=== PATIENT | male | born 1970 | race Caucasian/White ===

== ENCOUNTER → 2017-09-27 | Day surgery (SDC) | payer OTHER ==
[~2017-09-27] VITALS: Ht 180.3 cm; Wt 109.0 kg
[~2017-09-27] MED LIST: ACETAMINOPHEN 1000 MG/100 ML 100 ML IV ONE; ACETAMINOPHEN/HYDROcodone 325 MG/5 MG TAB PO PRN; CEFT2INJ2 IV; CHLORHEXIDINE GLUCONATE 2 % 1 PACK (2 CLOTHS) TOPICAL PRN; DEXAMETHASONE SOD PHOS 4 MG/ML VIAL IV ONE; DO NOT ADM ANY ANTICOAGULANT DRUGS PRN; HYDROmorphone HCL PF 2 MG/ML VIAL ONE; INSULIN HUMAN REGULAR 1,000 UNITS/10 ML VIAL SQ PRN; LACTATED RINGER'S 1000 ML IV PRN; LANTUS2P SQ; LIDOCAINE HCL 1% PF 5 ML SYRINGE OTHER ONE; LISI-515 PO; METF500T PO; METOPROLOL TARTRATE 25 MG TAB PO PRN; MIDAZOLAM HCL 2 MG/2 ML VIAL ONE; MINO100 PO; ONDANSETRON HCL 4 MG/2 ML VIAL IV ONE; PICC Daily Heparin 100 unit/mL Lock Flush IV FLUSH SCH; PICC PRN After Blood Draw NS Lock Flush IV FLUSH; PICC PRN Heparin 100 units/ml Lock Flush IV FLUSH; POVIDONE IODINE 5% (ANTISEPSIS KIT) 4 APPLICATIONS EACH NARE PRN; PROPOFOL 200 MG/20 ML AMP IV ONE; SODIUM CHLORID 0.9% 500 ML IV PRN; SODIUM CHLORIDE 0.9% FLUSH 10 ML FLUSH IV FLUSH PRN; SODIUM CHLORIDE 0.9% FLUSH 10 ML FLUSH IV FLUSH SCH; ceFAZolin 2 GM PREMIX 50 ML IV SCH
[2017-09-27 13:20] VITALS: BP 142/89; PULSE 96; RESP 16; TEMP 98.3; O2SAT 96
--- NOTE | 2017-10-09 09:31 | MP ---
cc: Samanta Huerta DATE OF OPERATION: 09/27/2017 SURGEON: Samanta Huerta MD HARNESS MAKER: None. PREOPERATIVE DIAGNOSIS: Right foot full-thickness ulceration. POSTOPERATIVE DIAGNOSIS: Right foot full-thickness ulceration. PROCEDURE PERFORMED: 1. Right foot wound debridement. 2. Right foot wound VAC application. ANESTHESIA: General. HEMOSTASIS: Pneumatic calf tourniquet at 250 mmHg. ESTIMATED BLOOD LOSS: Less than 5 mL. MATERIALS USED: Include a Versajet wand and a KCI black wound VAC. INJECTABLES: None. COMPLICATIONS: None. INDICATIONS: Mr. 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 The wound, while improving, continued to have a large fibrotic base and exposed tendon so the decision was made for further debridement and resection of the tendon while the patient remains on IV antibiotics. The consent was signed. The procedure was explained. No guarantees were given. PROCEDURE: Under mild sedation, the patient was brought to the operating room, placed on the operating room table in the supine position. Following IV sedation, a pneumatic calf tourniquet was applied to the right calf. The leg was then scrubbed, prepped and draped in the usual aseptic manner. Using the Versajet wand, the wound edges were freshened to healthy bleeding tissue and the wound base was debrided of all fibrotic tissue. The extensor tendons of the second, third, and fourth digits were excised and removed as they did not appear healthy or viable. The Versajet wand was again used to freshen and remove any nonviable tissue from the wound bed. The wound was measuring approximately ____ long x 10 cm wide x 0.4 cm in depth at the end of the debridement. This area was cleansed with copious amounts of sterile saline. Adaptic was applied over the wound bed and a black KCI wound VAC sponge was then applied to the wound site at 225 mmHg continuous pressure. A dressing of 4 x 4's, cast padding and a light Nakul bandage was then applied. The patient tolerated the procedure and anesthesia well. He will recover in the PACU for a period of time before being discharged home with written and oral postoperative instructions. KATHLEEN Tracey/CHUY/ , 07:27 AM , 07:50 AM
== END | disposition home or self-care (01) ==
LOC: HSDC 07:44
PROVIDERS: ATTEND Podiatrist Foot & Ankle Surgery
DX: E11.621 Type 2 diabetes mellitus with foot ulcer (principal); L97.513 Non-pressure chronic ulcer of other part of right foot with necrosis of muscle; L03.119 Cellulitis of unspecified part of limb; B96.89 Other specified bacterial agents as the cause of diseases classified elsewhere; I10 Essential (primary) hypertension; M51.26 Other intervertebral disc displacement, lumbar region; M54.40 Lumbago with sciatica, unspecified side; M62.830 Muscle spasm of back; Z89.429 Acquired absence of other toe(s), unspecified side; Z79.4 Long term (current) use of insulin
CPT/HCPCS: 00400; 11043; J0131; J1100; J1170; J1642; J2250; J2405; J7120

== ENCOUNTER → 2017-11-07 | Day surgery (SDC) | payer OTHER ==
[~2017-11-07] VITALS: Ht 180.3 cm; Wt 111.3 kg
[~2017-11-07] MED LIST changes: +BUPIVACAINE HCL PF 0.25% 30 ML VIAL ONE; -CEFT2INJ2 IV; +CLIN150C14 PO; -DEXAMETHASONE SOD PHOS 4 MG/ML VIAL IV ONE; +FAMOTIDINE 20 MG/2 ML VIAL ONE; -HYDROmorphone HCL PF 2 MG/ML VIAL ONE; -INSULIN HUMAN REGULAR 1,000 UNITS/10 ML VIAL SQ PRN; -LIDOCAINE HCL 1% PF 5 ML SYRINGE OTHER ONE; -MINO100 PO; +NEOMYCIN/POLYMYXIN 1 ML G.U. IRRIGANT ONE; -ONDANSETRON HCL 4 MG/2 ML VIAL IV ONE; -PICC Daily Heparin 100 unit/mL Lock Flush IV FLUSH SCH; -PICC PRN After Blood Draw NS Lock Flush IV FLUSH; -PICC PRN Heparin 100 units/ml Lock Flush IV FLUSH; -PROPOFOL 200 MG/20 ML AMP IV ONE; -SODIUM CHLORIDE 0.9% FLUSH 10 ML FLUSH IV FLUSH PRN; -SODIUM CHLORIDE 0.9% FLUSH 10 ML FLUSH IV FLUSH SCH; +VANCOMYCIN 500 MG/NS 100 ML IV SCH; -ceFAZolin 2 GM PREMIX 50 ML IV SCH
--- NOTE | 2017-11-07 14:21 | MP ---
cc: Samanta Huerta DPM DATE OF OPERATION: 11/07/2017 DATE OF SURGERY: 11/07/2017 SURGEON: Samanta Huerta DPM [employer] BPM DEVELOPER: Staff provided machinist first class. PREOPERATIVE DIAGNOSIS: Right foot stage II ulceration. POSTOPERATIVE DIAGNOSIS: Right foot stage II ulceration. PROCEDURE PERFORMED: 1. Right foot wound bed preparation. 2. Right foot Integra graft application. 3. Right foot wound VAC application. PATHOLOGY SENT: None. ANESTHESIA: General. HEMOSTASIS: Pneumatic calf tourniquet at 250 mmHg for 15 minutes. ESTIMATED BLOOD LOSS: Less than 5 mL MATERIALS USED: Included Integra wound graft, a KCI wound VAC, 3-0 Monocryl. INJECTABLES: None. COMPLICATIONS: None. INDICATIONS: Mr. Hopson is a 47-year-old male patient well known to me. 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 He has since been working to heal the wound and has shown great progress. The decision was made to apply the Integra graft as soon as the deeper voids of the wound had filled in, in order to allow for faster healing and prevent further infection. The consent was signed. The procedure was explained. No guarantees were given. PROCEDURE: Under mild sedation, the patient was brought into the operating room, placed on the operating table in supine position. Following IV sedation, a pneumatic calf tourniquet was placed around the right calf. The leg was then scrubbed, prepped and draped in the usual aseptic manner. An Esmarch bandage was used to exsanguinate the right lower extremity and the tourniquet was inflated to 250 mmHg. Attention was directed to the dorsal aspect of the right foot where there was a 5.5 x 5.5 cm ulceration. There was a fibrotic slough over the wound, but underlying tissue appeared healthy and granular. A Versajet was used to remove the fibrotic slough. The wound edges were then freshened using a 15 blade scalpel. Pneumatic tourniquet was released. There was prompt hyperemic response of all digits of the right foot. The wound bed had no excessive bleeding; it was well controlled. An Integra graft was applied over the wound and sutured in 6 corners in order to tack it down. A piece of Adaptic was then applied and a KCI wound VAC was cut to size and applied as well, set to 75 mmHg low continuous pressure and excellent suction was achieved. A sterile dressing of 4 x 4s, cast padding and a light Nakul wrap were applied. The patient tolerated the procedure and anesthesia well. He will recover in the PACU for a period of time before being discharged home with written and oral postoperative instructions. KATHLEEN Tracey/NANCY , 02:05 PM , 02:20 PM
[2017-11-07 15:06] VITALS: BP 142/83; PULSE 98; RESP 20; TEMP 97.4; O2SAT 98
== END | disposition home or self-care (01) ==
LOC: HSDC 11:03
PROVIDERS: ATTEND Podiatrist Foot & Ankle Surgery
DX: E11.621 Type 2 diabetes mellitus with foot ulcer (principal); L97.811 Non-pressure chronic ulcer of other part of right lower leg limited to breakdown of skin; I10 Essential (primary) hypertension; Z79.4 Long term (current) use of insulin
CPT/HCPCS: 00400; 11042; 15271; J0131; J2250; J3010; Q4104